=== PATIENT | female | born 1995 | race African-American/Black ===

== ENCOUNTER → 2024-08-03 | Outpatient (CLI) | payer BC, SELFPAY ==
[2024-08-03 11:29] LABS: Basophils % (Auto) 1 % (0-2.5); Eosinophils # (Auto) 0.5 Thou/mm3 (0.0-0.5); Eosinophils % (Auto) 8 % (0-10); Hematocrit 38.8 % (36.0-46.0); Hemoglobin 12.8 g/dL (12.0-16.0); Immature Granulocytes % (Auto) 0 % (0-0); Immature Granulocytes Auto 0.01 Thou/mm3 (0.00-0.00); Lymphocytes # (Auto) 2.4 Thou/mm3 (1.0-4.8); Lymphocytes % (Auto) 40 % (10-50); Mean Corpuscular Hemoglobin 29.6 pg (25.0-35.0); Mean Corpuscular Volume 90 fL (80-100); Monocytes # (Auto) 0.3 Thou/mm3 (0.0-0.8); Monocytes % (Auto) 6 % (0-12); Neutrophils # (Auto) 2.8 Thou/mm3 (1.8-7.7); Neutrophils % (Auto) 46 % (37-80); Nucleated Red Blood Cell % 0 /100 WBC (0); Platelet Count 280 Thou/mm3 (140-440); RDW Standard Deviation 41.6 fL (36.4-46.3); Red Blood Count 4.33 Miln/mm3 (4.00-5.20)
[2024-08-03 11:49] LABS: Follicle Stimulating Hormone 3.03 mIU/mL (See Note)
[2024-08-03 11:51] LABS: Glucose Estimated Average 94 mg/dL (80-131); Hemoglobin A1C 4.9 % Hgb (4.8-6.0)
[2024-08-03 12:21] LABS: Alanine Aminotransferase 7 U/L (10-49); Albumin, Serum 4.7 gm/dL (3.5-5.0); Albumin/Globulin Ratio 1.9 (1.2-2.2); Alkaline Phosphatase 62 U/L (46-116); Anion Gap 8 (7-16); Aspartate Amino Transferase < 10 U/L (0-34); BUN/Creatinine Ratio 15 Ratio (12-20); Beta HCG,Quantitative < 1 mIU/mL (<5.0); Bilirubin,Total 0.2 mg/dL (0.3-1.2); Blood Urea Nitrogen 12 mg/dL (9-23); Calcium 9.8 mg/dL (8.3-10.6); Calcium (Corrected) 9.8 mg/dL (8.5-10.1); Carbon Dioxide 26.1 mMol/L (20.0-31.0); Chloride 108 mMol/L (98-107); Creatinine (Component) 0.8 mg/dL (0.6-1.3); Free T4 (Free Thyroxine) 1.05 ng/dL (0.89-1.76); Globulin 2.5 gm/dL (2.3-3.5); Glucose 79 mg/dL (74-106); Osmolality,Calculated 281 (275-295); Potassium 4.5 mMol/L (3.4-5.1); Sodium 142 mMol/L (136-145); Thyroid Stimulating Hormone 0.84 uIU/mL (0.55-4.78); Total Protein 7.2 gm/dL (5.7-8.2); eGFR > 60 See Note
[2024-08-18 07:42] LABS: DHEA Sulfate* 183 mcg/dL (18-391)
[2024-08-18 07:43] LABS: Estrogen, Total, Serum* 441 pg/mL; Luteinizing Hormone* 8.4 mIU/mL; Progesterone,LC/MS* 13.2 ng/mL; Prolactin* 11.4 ng/mL; Testosterone, Free,Dialysis 6.1 pg/mL (0.1-6.4); Testosterone, Total, Dialysis 51 ng/dL (2-45)
== END | disposition home or self-care (01) ==
LOC: COPL 10:47
PROVIDERS: PCP Family Medicine; Referring Provider Specialist; Visit Provider Specialist
DX: N93.9 Abnormal uterine and vaginal bleeding, unspecified (principal)
CPT/HCPCS: 36415; 80053; 82627; 82672; 83001; 83002; 83036; 84144; 84146; 84402; 84403; 84439; 84443; 84702; 85025

== ENCOUNTER → 2024-09-02 | Outpatient (CLI) | payer BC, SELFPAY ==
[2024-09-03 08:30] LABS: BVAG Candida Negative (Negative); Bacterial Vaginosis Markers Negative (Negative); Candida glabrata Negative (Negative); Candida krusei PCR Negative (Negative); Trichomonas Negative (Negative)
== END | disposition home or self-care (01) ==
LOC: SLDO 15:33
PROVIDERS: Referring Provider Specialist; Visit Provider Specialist
DX: A59.01 Trichomonal vulvovaginitis (principal); N76.0 Acute vaginitis; B37.89 Other sites of candidiasis
CPT/HCPCS: 81514

== ENCOUNTER → 2024-09-14 | Outpatient (CLI) | payer BC, SELFPAY ==
[2024-09-14 09:33] LABS: Misc Send Out* See Sep Rpt; Quantiferon-TB* See Sep Rpt
[2024-09-14 10:21] LABS: Basophils % (Auto) 0 % (0-2.5); Eosinophils # (Auto) 0.2 Thou/mm3 (0.0-0.5); Eosinophils % (Auto) 3 % (0-10); Hematocrit 35.2 % (36.0-46.0); Hemoglobin 12.3 g/dL (12.0-16.0); Immature Granulocytes % (Auto) 0 % (0-0); Immature Granulocytes Auto 0.01 Thou/mm3 (0.00-0.00); Lymphocytes # (Auto) 2.1 Thou/mm3 (1.0-4.8); Lymphocytes % (Auto) 37 % (10-50); Mean Corpuscular HGB Conc 34.9 g/dl (31.0-37.0); Mean Corpuscular Hemoglobin 30.1 pg (25.0-35.0); Mean Corpuscular Volume 86 fL (80-100); Monocytes # (Auto) 0.3 Thou/mm3 (0.0-0.8); Monocytes % (Auto) 6 % (0-12); Neutrophils % (Auto) 54 % (37-80); Nucleated Red Blood Cell % 0 /100 WBC (0); Platelet Count 298 Thou/mm3 (140-440); RDW Standard Deviation 39.3 fL (36.4-46.3); Red Blood Count 4.08 Miln/mm3 (4.00-5.20); White Blood Count 5.6 Thou/mm3 (3.6-11.0)
[2024-09-14 10:47] LABS: Hepatitis B Surface Antigen Non Reactive (Non React); Rubella, IgG Antibody Reactive (Immune)
[2024-09-14 11:36] LABS: HIV (1&2) Antibody Rapid Non-Reactive
[2024-09-14 13:05] LABS: Creatinine (Component) 0.6 mg/dL (0.6-1.3); Glucose 78 mg/dL (74-106); eGFR > 60 See Note
[2024-09-14 13:39] LABS: Glucose Estimated Average 97 mg/dL (80-131)
[2024-09-14 14:36] LABS: Beta HCG,Quantitative 211944 mIU/mL (<5.0)
[2024-09-14 15:59] LABS: Collection Type, Urine Clean Catch
[2024-09-14 18:07] LABS: Amphetamine/Methamp Scrn,U Negative (Negative); Barbiturate Screen,Urine Negative (Negative); Benzodiazepines Screen,Urine Negative (Negative); Benzoylecgonine Screen, Ur Negative (Negative); Fentanyl Screen,Urine Negative (Negative); Opiate Screen,Urine Negative (Negative); THC Screen,Urine Negative (Negative)
[2024-09-14 18:31] LABS: Bilirubin,Urine Negative (Negative); Blood,Urine Negative (Negative); Clarity,Urine Clear (Clear/Hazy); Color,Urine Colorless (Lt Yel-Yel); Glucose, Urine Negative (Negative); Ketones,Urine Negative (Negative); Leukocyte Esterase,Urine Negative (Negative); Nitrite,Urine Negative (Negative); PH,Urine 7.5 (5.0-7.0); Protein,Urine Negative (Neg - Trace); RBC,Urine 1 /hpf (0-3); Specific Gravity,Urine 1.011 (1.001-1.035); Squamous Epithelial Cell,Urine 1 /hpf (0-5); Urobilinogen,Urine Negative mg/dL (0.0-1.0); WBC,Urine < 1 /hpf (0-5)
[2024-09-17 19:50] LABS: HCV RNA, PCR <15 NOT DETECTED IU/mL
[2024-09-18 06:58] LABS: HCV RNA, PCR Log IU <1.18 NOT DETECTED Log IU/mL; HIV Ag/Ab, 4th Gen NON-REACTIVE
== END | disposition home or self-care (01) ==
PROVIDERS: PCP Family Medicine; Referring Provider Physician Assistant Medical; Visit Provider Physician Assistant Medical
DX: Z34.81 Encounter for supervision of other normal pregnancy, first trimester (principal)
CPT/HCPCS: 36415; 80307; 81001; 82565; 82947; 83036; 84702; 85025; 86480; 86703; 86762; 86850; 86900; 86901; 87086; 87340; 87389; 87522

== ENCOUNTER → 2025-01-06 | Outpatient (CLI) | payer BC, SELFPAY ==
[2025-01-06 17:18] LABS: Glucose,1 Hour PP 50gm Dose 73 mg/dL (80-140)
== END | disposition home or self-care (01) ==
LOC: SLDO 14:36
PROVIDERS: Referring Provider Physician Assistant Medical; Visit Provider Physician Assistant Medical
DX: Z34.82 Encounter for supervision of other normal pregnancy, second trimester (principal)
CPT/HCPCS: 36415; 82950

== ENCOUNTER → 2025-01-27 | Outpatient (CLI) | payer BC, SELFPAY ==
[2025-01-27 16:18] LABS: Basophils # (Auto) 0.0 Thou/mm3 (0.0-0.2); Basophils % (Auto) 0 % (0-2.5); Eosinophils # (Auto) 0.2 Thou/mm3 (0.0-0.5); Eosinophils % (Auto) 2 % (0-10); Hematocrit 33.9 % (36.0-46.0); Hemoglobin 10.8 g/dL (12.0-16.0); Immature Granulocytes Auto 0.03 Thou/mm3 (0.00-0.00); Lymphocytes # (Auto) 2.3 Thou/mm3 (1.0-4.8); Lymphocytes % (Auto) 28 % (10-50); Mean Corpuscular HGB Conc 31.9 g/dl (31.0-37.0); Mean Corpuscular Hemoglobin 29.3 pg (25.0-35.0); Mean Corpuscular Volume 92 fL (80-100); Monocytes # (Auto) 0.5 Thou/mm3 (0.0-0.8); Monocytes % (Auto) 6 % (0-12); Neutrophils # (Auto) 5.3 Thou/mm3 (1.8-7.7); Neutrophils % (Auto) 64 % (37-80); Nucleated Red Blood Cell # 0.00 Thou/mm3 (0.00-0.00); Nucleated Red Blood Cell % 0 /100 WBC (0); Platelet Count 240 Thou/mm3 (140-440); RDW Standard Deviation 44.5 fL (36.4-46.3); Red Blood Count 3.69 Miln/mm3 (4.00-5.20); White Blood Count 8.3 Thou/mm3 (3.6-11.0)
[2025-01-27 16:48] LABS: Syphilis Nonreactive (Nonreactive)
== END | disposition home or self-care (01) ==
LOC: SLDO 14:35
PROVIDERS: Referring Provider Physician Assistant Medical; Visit Provider Physician Assistant Medical
DX: Z34.83 Encounter for supervision of other normal pregnancy, third trimester (principal); Z3A.00 Weeks of gestation of pregnancy not specified
CPT/HCPCS: 36415; 85025; 86780

== ENCOUNTER 2025-03-05 21:58 | Observation (INO) | payer BC, SELFPAY ==
[2025-03-05] VITALS (9 sets, daily range): BP systolic 102–136; BP diastolic 58–80; PULSE 103–117; RESP 18–99; TEMP 36.6; O2SAT 98–99; BMI 35.2
== END 2025-03-05 22:55 | disposition home or self-care (01) ==
PROVIDERS: Admitting Provider Specialist; Visit Provider Specialist
DX: O21.2 Late vomiting of pregnancy (principal); Z3A.34 34 weeks gestation of pregnancy
CPT/HCPCS: 59025; 59899

== ENCOUNTER → 2025-03-17 | Outpatient (CLI) | payer BC, SELFPAY ==
[2025-03-17 10:54] LABS: Misc Send Out* See Sep Rpt
[2025-03-17 11:35] LABS: Basophils # (Auto) 0.0 Thou/mm3 (0.0-0.2); Basophils % (Auto) 0 % (0-2.5); Eosinophils # (Auto) 0.1 Thou/mm3 (0.0-0.5); Eosinophils % (Auto) 1 % (0-10); Hematocrit 34.2 % (36.0-46.0); Hemoglobin 10.9 g/dL (12.0-16.0); Immature Granulocytes Auto 0.05 Thou/mm3 (0.00-0.00); Lymphocytes # (Auto) 2.6 Thou/mm3 (1.0-4.8); Lymphocytes % (Auto) 30 % (10-50); Mean Corpuscular HGB Conc 31.9 g/dl (31.0-37.0); Mean Corpuscular Hemoglobin 28.2 pg (25.0-35.0); Mean Corpuscular Volume 89 fL (80-100); Monocytes # (Auto) 0.8 Thou/mm3 (0.0-0.8); Monocytes % (Auto) 10 % (0-12); Neutrophils # (Auto) 5.0 Thou/mm3 (1.8-7.7); Neutrophils % (Auto) 58 % (37-80); Nucleated Red Blood Cell # 0.00 Thou/mm3 (0.00-0.00); Nucleated Red Blood Cell % 0 /100 WBC (0); Platelet Count 252 Thou/mm3 (140-440); RDW Standard Deviation 44.7 fL (36.4-46.3); Red Blood Count 3.86 Miln/mm3 (4.00-5.20); White Blood Count 8.6 Thou/mm3 (3.6-11.0)
[2025-03-17 11:52] LABS: Folate 21.31 ng/mL (>5.38); Vitamin B12 394 pg/mL (211-911)
[2025-03-17 11:56] LABS: Ferritin 14 ng/mL (7.3-270.7); Iron 49 mcg/dL (50-170); Percent Iron Saturation 12 % (20-55); Total Iron Binding Capacity 390 mcg/dL (250-425); Unsaturated Iron Binding 341 (225-295)
[2025-03-18 13:41] LABS: BVAG Candida Negative (Negative); Bacterial Vaginosis Markers Negative (Negative); Candida glabrata Negative (Negative); Candida krusei PCR Negative (Negative); Trichomonas Negative (Negative)
[2025-03-21 13:49] LABS: Hemoglobinopathy Hematocrit 34.1 % (35.0-45.0); Hemoglobinopathy Hemoglobin 10.9 g/dL (11.7-15.5); Hemoglobinopathy Hemoglobin A2 2.5 % (2.0-3.2); Hemoglobinopathy Hemoglobin F 0.0 % (LESS THAN 2.0); Hemoglobinopathy MCH 28.8 pg (27.0-33.0); Hemoglobinopathy MCV 90.2 fL (80.0-100.0); Hemoglobinopathy Red Blood Cnt 3.78 Million/uL (3.80-5.10)
[2025-03-22 06:57] LABS: Hemoglobinopathy Hemoglobin A 97.5 %; Hemoglobinopathy RDW 13.4 % (11.0-15.0)
== END | disposition home or self-care (01) ==
PROVIDERS: PCP Family Medicine; Referring Provider Physician Assistant Medical; Visit Provider Physician Assistant Medical
DX: D50.9 Iron deficiency anemia, unspecified (principal); Z34.83 Encounter for supervision of other normal pregnancy, third trimester
CPT/HCPCS: 36415; 81514; 82607; 82728; 82746; 83020; 83540; 83550; 85014; 85018; 85025; 85041

== ENCOUNTER 2025-04-07 05:28 | Inpatient (IN) | payer BC, SELFPAY ==
--- NOTE | 2025-04-02 14:11 | ESHP_ITS ---
RE: LIVAN GERONIMO : 1995 DATE OF ADMISSION: 04/07/2025 DATE OF ADMISSION AND SURGERY: 04/07/2025 HISTORY OF PRESENT ILLNESS: This is a 30-year-old 5, para 2-0-2-2, with intrauterine at 39 weeks and 1 day on 04/07, who presents for repeat delivery. The patient is also multiparous and desires voluntary sterilization. She reports normal movement. She denies any leaking or bleeding. She denies any contractions. Her care was complicated by anemia for which the patient has been taking iron supplementation. She did have a maternal medicine ultrasound, which showed normal anatomy. ALLERGIES: AZITHROMYCIN. MEDICATIONS: 1. multivitamin 1 p.o. daily. 2. Ferrous sulfate 325 mg 1 p.o. daily. 3. Omeprazole 20 mg 1 p.o. daily. PAST MEDICAL HISTORY: Iron deficiency anemia, polycystic ovarian syndrome, and asthma. SOCIAL HISTORY: She denies any alcohol, drug use, or smoking. FAMILY HISTORY: Paternal grandmother has diabetes. Maternal grandmother has COPD, stroke, and obesity. Mom has migraine headaches, hypertension, and obesity. OBSTETRIC HISTORY: In 2018, spontaneous AB, 6 weeks' gestation, no D and C. In 2019, spontaneous AB, 6 weeks' gestation, no D and C. In 2020, 40 weeks, delivery, 8 pound male, no complications. In 07/2023, 38 weeks, delivery, 5 pound 14 ounce male, no complications. PAST SURGICAL HISTORY: delivery in 2020 and 2023. REVIEW OF SYSTEMS: She denies any chest pain, palpitations, cough, fever, flank pain, shortness of breath, or lower extremity pain. PHYSICAL EXAMINATION: VITAL SIGNS: Blood pressure 119/70, heart rate 88, respiration 18, temperature 98.6, weight 179 pounds. HEENT: Oropharynx and sclerae are clear. LUNGS: Clear to auscultation bilaterally. HEART: Regular rate and rhythm. ABDOMEN: Gravid, term size. Old Pfannenstiel scar noted. EXTREMITIES: Nontender. SKIN: No gross rashes or lesions. NEUROLOGIC: No focal deficit. ASSESSMENT: Intrauterine at 39 weeks and 1 day on 04/07. Previous delivery, elective repeat delivery. Multiparous, desires voluntary sterilization. PLAN: Repeat delivery and bilateral tubal ligation. Informed consent was obtained. The patient made aware of the risks, complications, alternatives, benefits of the proposed procedure and she agrees. She is aware of the failure rate and the increased risk of tubal ectopic gestation if occurs. She is aware that vasectomy may have a lower failure rate, as well as reversal methods of control and she declines those methods. DT: 13:43:23 TT: 14:11:00 Ref: [id number] - TID: [id number] [facility]
[2025-04-05 12:01] LABS: INR 1.0 (0.9-1.3); Partial Thromboplastin Time 27.7 Seconds (22.0-36.0); Prothrombin Time 10.2 Seconds (9.0-12.2)
[2025-04-05 12:08] LABS: Alanine Aminotransferase 10 U/L (10-49); Albumin, Serum 4.1 gm/dL (3.5-5.0); Albumin/Globulin Ratio 1.9 (1.2-2.2); Alkaline Phosphatase 140 U/L (46-116); Anion Gap 9 (7-16); Aspartate Amino Transferase 18 U/L (0-34); BUN/Creatinine Ratio 10 Ratio (12-20); Bilirubin,Total 0.2 mg/dL (0.3-1.2); Blood Urea Nitrogen 6 mg/dL (9-23); Calcium 9.5 mg/dL (8.3-10.6); Calcium (Corrected) 9.5 mg/dL (8.5-10.1); Carbon Dioxide 25.5 mMol/L (20.0-31.0); Chloride 106 mMol/L (98-107); Creatinine (Component) 0.6 mg/dL (0.6-1.3); Globulin 2.2 gm/dL (2.3-3.5); Glucose 94 mg/dL (74-106); Osmolality,Calculated 277 (275-295); Potassium 4.2 mMol/L (3.4-5.1); Sodium 140 mMol/L (136-145); Total Protein 6.3 gm/dL (5.7-8.2); eGFR > 60 See Note
[2025-04-05 12:15] LABS: Syphilis Nonreactive (Nonreactive)
[2025-04-05 12:21] LABS: Basophils # (Auto) 0.0 Thou/mm3 (0.0-0.2); Basophils % (Auto) 0 % (0-2.5); Eosinophils # (Auto) 0.2 Thou/mm3 (0.0-0.5); Eosinophils % (Auto) 2 % (0-10); Hematocrit 34.7 % (36.0-46.0); Hemoglobin 11.2 g/dL (12.0-16.0); Immature Granulocytes Auto 0.03 Thou/mm3 (0.00-0.00); Lymphocytes # (Auto) 1.9 Thou/mm3 (1.0-4.8); Lymphocytes % (Auto) 25 % (10-50); Mean Corpuscular HGB Conc 32.3 g/dl (31.0-37.0); Mean Corpuscular Hemoglobin 28.0 pg (25.0-35.0); Mean Corpuscular Volume 87 fL (80-100); Monocytes # (Auto) 0.5 Thou/mm3 (0.0-0.8); Monocytes % (Auto) 7 % (0-12); Neutrophils # (Auto) 5.0 Thou/mm3 (1.8-7.7); Neutrophils % (Auto) 65 % (37-80); Nucleated Red Blood Cell # 0.00 Thou/mm3 (0.00-0.00); Nucleated Red Blood Cell % 0 /100 WBC (0); Platelet Count 251 Thou/mm3 (140-440); RDW Standard Deviation 47.4 fL (36.4-46.3); Red Blood Count 4.00 Miln/mm3 (4.00-5.20); White Blood Count 7.6 Thou/mm3 (3.6-11.0)
[2025-04-07] VITALS (17 sets, daily range): BP systolic 98–112; BP diastolic 43–76; PULSE 64–117; RESP 16–18; TEMP 36.4–37; O2SAT 96–100; BMI 36.2
[2025-04-07 06:44] LABS: Basophils # (Auto) 0.0 Thou/mm3 (0.0-0.2); Basophils % (Auto) 0 % (0-2.5); Eosinophils # (Auto) 0.2 Thou/mm3 (0.0-0.5); Eosinophils % (Auto) 2 % (0-10); Hematocrit 32.7 % (36.0-46.0); Hemoglobin 10.8 g/dL (12.0-16.0); Immature Granulocytes Auto 0.03 Thou/mm3 (0.00-0.00); Lymphocytes # (Auto) 2.6 Thou/mm3 (1.0-4.8); Lymphocytes % (Auto) 33 % (10-50); Mean Corpuscular HGB Conc 33.0 g/dl (31.0-37.0); Mean Corpuscular Hemoglobin 28.5 pg (25.0-35.0); Mean Corpuscular Volume 86 fL (80-100); Monocytes # (Auto) 0.6 Thou/mm3 (0.0-0.8); Monocytes % (Auto) 7 % (0-12); Neutrophils # (Auto) 4.7 Thou/mm3 (1.8-7.7); Neutrophils % (Auto) 58 % (37-80); Nucleated Red Blood Cell # 0.00 Thou/mm3 (0.00-0.00); Nucleated Red Blood Cell % 0 /100 WBC (0); Platelet Count 234 Thou/mm3 (140-440); RDW Standard Deviation 47.7 fL (36.4-46.3); Red Blood Count 3.79 Miln/mm3 (4.00-5.20); White Blood Count 8.1 Thou/mm3 (3.6-11.0)
[2025-04-07] MEDS: ceFAZolin/D5W 2 GM IV 2 GM/100 ML BAG IV (07:10)
[2025-04-07] MEDS: FAMOTIDINE INJ 10 MG/ML VIAL 2 ML 20 MG IV (07:11)
[2025-04-07] MEDS: METOCLOPRAMIDE INJ 5 MG/ML VIAL 2 ML 10 MG IVP (07:11)
--- NOTE | 2025-04-07 07:11 | PD.GYNPROC ---
Operative Note - SENIOR ANALYTIC CONSULTANT Procedure Date of procedure: 04/07/25 Procedure Performed: Repeat low-transverse section via Pfannenstiel skin incision Bilateral salpingectomy Indication: Viable IUP 39w1d Previous Delivery Elects Repeat Delivery Multiparity Desires Voluntary Sterilization Pre-Op diagnosis: Viable IUP 39w1d Previous Delivery Elects Repeat Delivery Multiparity Desires Voluntary Sterilization Post-Op diagnosis: Viable IUP 39w1d Previous Delivery Elects Repeat Delivery Multiparity Desires Voluntary Sterilization Anesthesia type: Spinal Procedure description: After proper informed consent was obtained and the patient was made aware of the risks, complications, alternatives and benefits of the proposed procedure she was taken to the operating room where she underwent induction of spinal anesthesia. She was prepped and draped in the usual sterile fashion. A timeout was performed.? A Pfannenstiel skin incision was made with the scalpel and carried through to the underlying layer of fascia with the Bovie. The fascia was nicked in the midline incision and the incision was extended bilaterally with the Bovie. The inferior aspect of the fascial incision was grasped with Venu clamps elevated and the underlying rectus muscle dissected off with the Bovie. The superior aspect the fascial incision was grasped with Venu clamps elevated and the underlying rectus muscle dissected off with the Bovie. The rectus muscles were in the midline. The peritoneum was grasped between 2 Celis clamps and entered sharply with the Metzenbaum scissors. The peritoneum was extended superiorly and inferiorly with good visualization of the bladder. The vesicouterine peritoneum was incised transversely and the bladder flap created digitally. A [place] blade was inserted. A low transverse incision was made in the uterus with a scapel and the incision was extended digitally. The infant's head delivered and the mouth and nose were suctioned with the bulb suction. The shoulder and body delivered atraumatically. The cord was clamped after 30 second delayed cord clamping and the cord was cut.? The female infant was handed off to the waiting Pediatric staff, cord blood was collected for lab testing. The placenta was removed complete and intact. The uterus was exteriorized and cleared of all clots and debris. The uterine incision was closed with #1-0 chromic catgut suture in a running interlocking fashion. A second layer of the same suture was used to imbricate the first layer and obtain excellent hemostasis. The vesicouterine peritoneum was closed with 2-0 chromic catgut suture in a running fashion. Attention was turned to the left fallopian tube which was grasped at the fimbriated end with a Chrisney clamp and using the Enseal X-1 large jaw a left salpingectomy was performed. Hemostasis achieved. Attention was turned to the right fallopian tube which was grasped at the fimbriated end with a Chrisney clamp and using the Enseal X-1 large jaw a left salpingectomy was performed. Hemostasis achieved. The firm uterus was returned to the abdomen. The gutters were cleared of all clots and debris. The adnexae were revisualized along with the lower uterine segment and all was hemostatic. The peritoneum was closed with 0 chromic catgut suture in running fashion. The rectus muscle was closed with 0 chromic catgut suture. The fascia was closed with 0 Vicryl beginning at each angle and ending in the center in a running fashion. The subcutaneous tissue was irrigated with warmed normal saline solution and found to be hemostatic. The subcutaneous tissue was closed with 2-0 chromic catgut suture in a running fashion. The skin was closed with 4-0 Monocryl. A Dermabond Prineo dressing was applied and a sterile pressure dressing was applied.? She tolerated the procedure well. Counts were correct. I discussed with the patient the nature of her condition, intraoperative findings and expectation for recovery all questions answered. Specimen: right tube and left ovary Estimated blood loss (ml): 400 Findings: Live female Apgars see RN notes Weight see RN notes Placenta removed complete and intact Amniotic fluid clear Uterus ovaries and fallopian tubes grossly within normal limits Complications: none Surgical staff Dr Shaver, Surgeon Quique Harris, RANDEE Hong Operation Date: 04/07/25 07:45 <No data on this case meets the specified criteria> Diagnosis Discharge Diagnosis (1) delivery delivered: Status: Acute (2) Sterilization: Status: Acute (3) Status post bilateral salpingectomy: Status: Acute Problem List Completed Was Problem List Reviewed/Reconciled?: Yes
[2025-04-07] MEDS: RINGERS LACTATED 1000 ML 1,000 ML 100 ML IV (07:16)
--- NOTE | 2025-04-07 07:33 | ESDS_ITS ---
DS: Providers Provider Date of admission: 04/07/25 05:28 Primary care physician: Mo Shaver MD Admitting Provider: Mo Shaver MD Attending Provider on Admission: Mo Shaver MD Attending Provider on DC: Mo Shaver MD Discharging Provider: Mo Shaver MD DS: Diagnosis Problem List Completed Was Problem List Reviewed/Reconciled?: Yes Summary/Hosp Course Peripartum Data Delivery Method: Low Transverse Procedures: Procedures Operation Date: 04/07/25 07:45 <No data on this case meets the specified criteria> complications: none Time Spent with Patient Time attestation: Total time spent providing and/or coordinating discharge services: Exam Vital Signs Temp Pulse BP 97.6 F 117 H 112/68 04/07/25 05:49 04/07/25 05:39 04/07/25 05:39 Discharge Plan Plan Patient Disposition: HOME (Self Care) Patient condition on transfer: Stable Prescriptions/Referrals Prescriptions/Med Rec: New ibuprofen 600 mg tablet 600 mg PO Q6H PRN (Reason: pain) Qty: 30 0RF Continued ferrous sulfate 325 mg (65 mg iron) tablet 325 mg PO QDAY One Daily 27 mg iron- 800 mcg tablet 1 tab PO QDAY Patient Comments: Take 1 tablet by mouth once a day Referrals: Mo Shaver MD [Primary Care Provider, [facility] SEASON[facility] SPECIALIST] Patient/Caregiver Discharge Instructions Discharge Activity: activity as tolerated Other Discharge Activity Instructions:: Follow up office 1 week. Education Materials: C Section Dc Print Language: Urugu[place] Stand Alone Forms: Sarahy Award Info., Patient Portal Info Letter Discharge Order Discharge Orders: Discharge (Routine); Ordered 04/09/25 Ordered By: Mo Shaver Planned Discharge Date 04/09/25
[2025-04-07] MEDS: KETOROLAC INJ 30 MG/ML VIAL IVP ×2 (10:34→17:34)
[2025-04-07] MEDS: OXYTOCIN in NS 20 units 20 UNIT/1,000 ML BAG 125 UNIT IV ×2 (11:07→19:34)
[2025-04-07 13:51] LABS: Basophils # (Auto) 0.0 Thou/mm3 (0.0-0.2); Basophils % (Auto) 0 % (0-2.5); Eosinophils # (Auto) 0.1 Thou/mm3 (0.0-0.5); Eosinophils % (Auto) 1 % (0-10); Hematocrit 33.7 % (36.0-46.0); Hemoglobin 10.8 g/dL (12.0-16.0); Immature Granulocytes Auto 0.06 Thou/mm3 (0.00-0.00); Lymphocytes # (Auto) 2.4 Thou/mm3 (1.0-4.8); Lymphocytes % (Auto) 21 % (10-50); Mean Corpuscular HGB Conc 32.0 g/dl (31.0-37.0); Mean Corpuscular Hemoglobin 28.1 pg (25.0-35.0); Mean Corpuscular Volume 88 fL (80-100); Monocytes # (Auto) 0.6 Thou/mm3 (0.0-0.8); Monocytes % (Auto) 5 % (0-12); Neutrophils # (Auto) 8.2 Thou/mm3 (1.8-7.7); Neutrophils % (Auto) 72 % (37-80); Nucleated Red Blood Cell # 0.00 Thou/mm3 (0.00-0.00); Nucleated Red Blood Cell % 0 /100 WBC (0); Platelet Count 228 Thou/mm3 (140-440); RDW Standard Deviation 48.5 fL (36.4-46.3); Red Blood Count 3.84 Miln/mm3 (4.00-5.20); White Blood Count 11.4 Thou/mm3 (3.6-11.0)
--- NOTE | 2025-04-07 19:09 | PD.LDDELS ---
Data (Ashraf) Data Hx Section: Yes : 5 Term: 2 : 0 Livin Abortions: Spontaneous & Theraputic: 2 Delivery Data (Ashraf) Labor Data Initiation of labor: Spontaneous Induction/Augmentation Agent: None ROM date: 04/07/25 ROM time: 08:14 Amniotic membrane rupture type: Artificial Amniotic fluid description: Clear Delivery Data EDC: 04/13/25 EDC calculated by:: LMP/early US confirmation Onset of labor date: 04/07/25 Onset of labor time: 08:15 Complete dilation date: 04/07/25 Complete dilation time: 08:15 [place]rell delivery date: 04/07/25 Turrell delivery time: 08:15 Gestational age (weeks): 39 Gestational age (days): 1 Placenta delivery date: 04/07/25 Placenta delivery time: 08:16 Stage 1 total time: Labor - Stage 1 Duration 0 minutes Delivered by: Mo Shaver Delivery nurse: rocio Prieto nurse: irina Floor Representative at delivery: Yes Support person(s) at delivery: fob in after delivery Other staff at delivery: see alice tracker Delivery Method Delivery method: Low Transverse Presentation: Vertex position: OA Anesthesia Type Anesthesia Type: None Anesthesia type: Spinal Placenta Placenta delivery description: Manual Removal cord blood collection: Cord Blood Type Episiotomy Episiotomy description: None EBL Estimated blood loss (ml): 400 Umbilical Cord cord description: 3 Vessels and Nuchal Cord Additional Procedures Bilateral salpingectomy Complications Complications: None Turrell Data (Ashraf) Turrell Data order: 1 Turrell's gender: Female weight (gms): 7 lb 0.877 oz Weight (pounds): 7 lbs and 0.9 ozs length: 20.5 in 1 minute: 9 5 minutes: 9
[2025-04-08 00:57] VITALS: BP 108/75; PULSE 95; RESP 17; TEMP 37.1; O2SAT 98
[2025-04-08] MEDS: Milk Of Magnesia Susp 30 ML UDC PO (01:06)
[2025-04-08] MEDS: IBUPROFEN TAB 400 MG TABLET 800 MG PO ×3 (01:09→18:19)
[2025-04-08 04:42] VITALS: BP 103/69; PULSE 92; RESP 18; TEMP 36.5; O2SAT 97
[2025-04-08 07:30] VITALS: BP 113/76; PULSE 89; RESP 20; TEMP 36.9; O2SAT 98
--- NOTE | 2025-04-08 08:19 | ESPR_ITS ---
RE: LIVAN GERONIMO : 1995 DATE OF SERVICE: 04/08/2025 SUBJECTIVE: Post-op day #1, patient denies any problem or complaint. OBJECTIVE: Vital Signs: Blood pressure 103/69, heart rate 92, respirations 18, temperature is 97.7, pulse ox is 97% on room air. Lungs: Clear to auscultation bilaterally. Heart: Regular rate and rhythm. Abdomen: Bandage dry and intact. Fundus is firm. Extremities: Nontender. Hemoglobin pre-delivery is 10.8, post-delivery is 10.8. ASSESSMENT: Post-op day #1 status post delivery and bilateral tubal ligation. PLAN: Remove dressing. Discontinue IV. Encourage ambulation. support. Possible discharge home tomorrow. DT: 08:01:20 TT: 08:18:00 Ref: [id number] - TID: [id number]
[2025-04-08] MEDS: ENOXAPARIN SOD INJ 40 MG/0.4 ML SYRINGE SC (08:56)
[2025-04-08] MEDS: DOCUSATE SOD 100 MG CAPSULE PO (08:57)
[2025-04-08 11:30] VITALS: BP 105/69; PULSE 93; RESP 17; TEMP 36.8; O2SAT 98
[2025-04-08] MEDS: SIMETHICONE 80 MG CHEW PO (18:21)
[2025-04-08 20:02] VITALS: BP 106/75; PULSE 95; RESP 16; TEMP 36.9; O2SAT 98
[2025-04-09] MEDS: IBUPROFEN TAB 400 MG TABLET 800 MG PO ×2 (03:33→13:13)
[2025-04-09 03:37] VITALS: BP 109/73; PULSE 92; RESP 17; TEMP 36.6; O2SAT 96
[2025-04-09 07:27] VITALS: BP 104/70; PULSE 85; RESP 17; TEMP 36.7; O2SAT 96
--- NOTE | 2025-04-09 08:15 | ESPR_ITS ---
RE: LIVAN GERONIMO : 1995 DATE OF SERVICE: 04/09/2025 SUBJECTIVE: Postop day #2. Patient denies any problem or complaint. OBJECTIVE: Vital Signs: Stable. She is afebrile. Abdomen: Incision clear and intact. Extremities: Nontender. ASSESSMENT AND PLAN: Postop day #2 status post delivery and bilateral salpingectomy. Discharge home. Discharge instructions given. Follow up in the office in 1 week. DT: 07:03:52 TT: 08:13:00 Ref: [id number] - TID: [id number]
[2025-04-09] MEDS: DOCUSATE SOD 100 MG CAPSULE PO (09:21)
== END 2025-04-09 15:00 | disposition home or self-care (01) | DRG 785 ==
LOC: S4SX 07:10 → S4NX 07:59
PROVIDERS: Admitting Provider Specialist; PCP Specialist; Visit Provider Specialist
PROC: 0UL70ZZ Occlusion of Bilateral Fallopian Tubes, Open Approach (ICD-10-PCS; CPT 59514; principal; 2025-04-07 07:30)
DX: O34.211 Maternal care for low transverse scar from previous cesarean delivery (principal); Z37.0 Single live birth; Z3A.39 39 weeks gestation of pregnancy; O69.81X0 Labor and delivery complicated by cord around neck, without compression, not applicable or unspecified; O99.02 Anemia complicating childbirth; D50.9 Iron deficiency anemia, unspecified; Z30.2 Encounter for sterilization
CPT/HCPCS: 36415; 80053; 85025; 85610; 85730; 86780; 86850; 86900; 86901; A4217; A4649; J0689; J1650; J1885; J2274; J2371; J2590; J2765; J3010; J3490; J7120; S0191; A9270; J2270